=== PATIENT | female | born 1965 | race Caucasian/White ===

== ENCOUNTER 2019-06-30 15:04 | Emergency (ER) | payer OTHER ==
[~2019-06-30] VITALS: Ht 160 cm; Wt 72.6 kg
[~2019-06-30 15:04] MED LIST: FORTAMET1000 MG; HUMALOG100 U/ML SQ; LANTUS SOLOSTAR3 ML SQ; LIPITOR20 MG; METFORMIN HCL500 M1 PO; NITROGLYCERIN0.4 MG; PROTONIX40 M1
== END 2019-06-30 18:11 | disposition home or self-care (01) ==
LOC: ER 15:04
DX: E11.649 Type 2 diabetes mellitus with hypoglycemia without coma (principal)

== ENCOUNTER → 2020-07-20 | Emergency (ER) | payer OTHER ==
[~2020-07-20] VITALS: Ht 160 cm; Wt 72.1 kg
[~2020-07-20] MED LIST changes: +ATORVASTATIN CA10 MG; +CITALOPRAM HBR20 MG; +KETO10TA2 PO; +LOSARTAN POTASS50 MG; +OMEPRAZOLE20 MG
== END | disposition home or self-care (01) ==
LOC: ER 09:14
DX: M79.644 Pain in right finger(s) (principal)

== ENCOUNTER 2021-03-08 12:17 | Emergency (ER) | payer OTHER ==
[~2021-03-08] VITALS: Ht 160 cm; Wt 68.5 kg
[2021-03-08] MEDS ORDERED: DICLOFENAC POTA50 MG PO (16:09)
[2021-03-08] MEDS ORDERED: ORPHENADRINE C100 MG PO (16:09)
== END 2021-03-08 16:28 ==
LOC: ER 12:17
DX: M79.605 Pain in left leg (principal); I10 Essential (primary) hypertension; E11.9 Type 2 diabetes mellitus without complications

== ENCOUNTER 2021-03-12 14:39 | Inpatient (IN) | payer OTHER ==
[~2021-03-12] VITALS: Ht 160 cm
[~2021-03-12 14:39] MED LIST changes: +DICLOFENAC POTA50 MG PO; +ORPHENADRINE C100 MG PO
== END 2021-03-17 19:32 | DRG 639 ==
LOC: ER 14:39 → ICU-2 17:15 → MEDJ 03-13 16:03
PROVIDERS: ADMIT Internal Medicine; ATTEND Internal Medicine
DX: E11.10 Type 2 diabetes mellitus with ketoacidosis without coma (principal); Z79.4 Long term (current) use of insulin; E86.0 Dehydration; E87.8 Other disorders of electrolyte and fluid balance, not elsewhere classified; I10 Essential (primary) hypertension; F32.9 Major depressive disorder, single episode, unspecified; Z20.822 Contact with and (suspected) exposure to COVID-19

== ENCOUNTER 2023-01-25 10:06 | Emergency (ER) | payer OTHER ==
[~2023-01-25] VITALS: Ht 160 cm; Wt 70.3 kg
[~2023-01-25 10:06] MED LIST changes: +XIGDUO XR 10 M1 EAC1
== END 2023-01-25 11:11 | disposition home or self-care (01) ==
LOC: ER 10:06
DX: L03.818 Cellulitis of other sites (principal); R21 Rash and other nonspecific skin eruption; Z88.5 Allergy status to narcotic agent; Z88.6 Allergy status to analgesic agent

== ENCOUNTER 2023-03-10 07:44 | Inpatient (IN) | payer OTHER ==
[~2023-03-10] VITALS: Ht 152.4 cm; Wt 68.0 kg
--- NOTE | 2023-03-10 08:10 | NUR ---
PTE ALERTA Y ORIENTADA X3 ACOMPANADA DE ESPOSO. ESPOSO REFIERE QUE PTE COMENZO A VOMITAR A LAS 12AM REFIERE QUE TUVO VOMITOS X4. PTE TIENE HX DE DIABETES Y NO SE ADMINISTRO LA INSULINA EN LA MANANA DE HOY. PTE REFIERE TENER DOLOR DE PECHO. SE MIDEN S/V, DXT Y SE REALIZA EKG.
[2023-03-10 09:13] LABS: URINE APPEARANCE Clear; URINE BILIRRUBIN Negative (NEGATIVE); URINE BLOOD Negative; URINE COLOR Yellow; URINE LEUKOCYTE Negative; URINE NITRATE Negative; URINE PROTEIN Negative (NEGATIVE); URINE UROBILINOGEN 0.2 E.U./dl
[2023-03-10 09:17] LABS: URINE BACTERIA 807.3 uL (0.0-1933); URINE EPITHELIAL CELLS 6.9 uL (0.0-38.8); URINE WBC 5.4 uL (0.0-23.2)
[2023-03-10 09:19] LABS: ALBUMIN 4.3 gm/dL (3.4-5.0); BILIRUBIN TOTAL 0.82 mg/dL (0.3-1.2); CALCIUM 10.7 mg/dL (8.5-10.1); CREATININE SERUM 1.8 mg/dL (0.55-1.02); GFR 28.8; GLOBULINA 3.4 G/DL (2.4-3.5); INR 1.05; MAGNESIUM 2.7 mg/dL (1.8-2.4); PARTIAL THROMBOPLASTIN TIME 24.8 SECONDS (22.0-34.0); PHOSPHOROUS 8.4 mg/dL (2.5-4.9); POTASSIUM 4.97 mEq/L (3.5-5.1); TOTAL PROTEIN 7.7 gm/dL (6.4-8.2)
[2023-03-10 09:35] LABS: ABG pCO2 27.5 mmHg (35-45); SaO2 96.4 %
[2023-03-10 09:36] LABS: ABG PH 7.178 (7.35-7.45); BASE EXCESS -16.8 mmol/l; Tco2 10.8 mmol/l; allen test SATISFACTORY; o2 21 %; puncture site RADIAL RIGHT
[2023-03-10 09:37] LABS: URINE GLUCOSE >=1000 MG/DL (NEGATIVE); URINE RBC 0.7 uL (0.0-20.8)
[2023-03-10 09:55] LABS: HEMATOCRIT 41.6 % (36.0-45.00); HEMOGLOBIN 13.3 g/dL (12.0-15.00); MEAN CELL VOLUME 90.5 fL (80.00-100.00); MEAN CORPUSCULAR HEMOGLOBIN 28.9 pg (27.00-32.0); PLATELET COUNT 279 K/uL (150-450); RED BLOOD COUNT 4.59 M/uL (4.00-6.00)
[2023-03-10 12:27] LABS: CALCIUM 10.3 mg/dL (8.5-10.1); CREATININE SERUM 1.74 mg/dL (0.55-1.02); GFR 29.95; POTASSIUM 4.61 mEq/L (3.5-5.1)
[2023-03-10 12:30] LABS: CHOL HDL RATIO 2.6 (0-5.0)
--- NOTE | 2023-03-10 13:39 | NUR ---
SE RECIBE PACIENTE FEMENINA ALERTA Y ORIENTADA X3, SE COLOCA EN CAMA #2 EN AREA DE CRITICO CON BARRANDAS ELEVADAS. SE CONECTA A MONITOR CARDIACO Y OXIMETRIA DE PUL[place]. SE LE ORIENTA PACIENTE Y A FAMILIAR SOBRE LAS ORDENES MEDICAS, REFIERE ENTENDER LAS MISMAS. SE CANALIZA EN BRAZO DERECHO CON ANGIO #20 Y SE LE COLOCA 0.9 NSS 1,000 BAJANDO A 250ML/HR PATENTE Y EN BRAZO DERECHO SE LE COLOCA ANGIO #22 CON KCL 40MEQ 1,000 BAJANDO A 40ML/HR PATENTES LIBRES DE EDEMAS Y ENROJECIMIENTO. SE LE INSERTA COLLINS #16 CON MEDIDAS ASEPTICAS Y ESTERILES. SE LE MEGAN LAS MUETRAS Y SE LE ADMINISTRAN LOS MEDICAMENTOS FERNANDO LA ORDEN MEDICA. SE OBSERVA POR CAMBIOS.
[2023-03-10 15:38] LABS: HEMATOCRIT 42.1 % (36.0-45.00); HEMOGLOBIN 13.4 g/dL (12.0-15.00); MEAN CELL VOLUME 88.6 fL (80.00-100.00); MEAN CORPUSCULAR HEMOGLOBIN 28.1 pg (27.00-32.0); MEAN CORPUSCULAR HGB CONC 31.8 g/dl (32.0-36.0); PLATELET COUNT 265 K/uL (150-450); RED BLOOD COUNT 4.75 M/uL (4.00-6.00); RED CELL DISTRIBUTION WIDTH 12.3 % (11.5-14.5)
[2023-03-10 17:44] LABS: CALCIUM 9.2 mg/dL (8.5-10.1); CREATININE SERUM 1.41 mg/dL (0.55-1.02); GFR 38.17; POTASSIUM 3.91 mEq/L (3.5-5.1)
[2023-03-11 07:40] LABS: HEMATOCRIT 36.5 % (36.0-45.00); HEMOGLOBIN 11.9 g/dL (12.0-15.00); MEAN CELL VOLUME 87.7 fL (80.00-100.00); MEAN CORPUSCULAR HEMOGLOBIN 28.6 pg (27.00-32.0); MEAN CORPUSCULAR HGB CONC 32.6 g/dl (32.0-36.0); PLATELET COUNT 227 K/uL (150-450); RED BLOOD COUNT 4.17 M/uL (4.00-6.00); RED CELL DISTRIBUTION WIDTH 12.8 % (11.5-14.5)
[2023-03-12 06:43] LABS: HEMATOCRIT 34.5 % (36.0-45.00); HEMOGLOBIN 11.6 g/dL (12.0-15.00); MEAN CELL VOLUME 86.5 fL (80.00-100.00); MEAN CORPUSCULAR HEMOGLOBIN 29.2 pg (27.00-32.0); MEAN CORPUSCULAR HGB CONC 33.7 g/dl (32.0-36.0); PLATELET COUNT 188 K/uL (150-450); RED BLOOD COUNT 3.99 M/uL (4.00-6.00); RED CELL DISTRIBUTION WIDTH 12.5 % (11.5-14.5)
[2023-03-12 07:34] LABS: ALBUMIN 2.8 gm/dL (3.4-5.0); BILIRUBIN TOTAL 0.34 mg/dL (0.3-1.2); CALCIUM 8.6 mg/dL (8.5-10.1); CREATININE SERUM 0.76 mg/dL (0.55-1.02); GFR 77.89; GLOBULINA 2.7 G/DL (2.4-3.5); POTASSIUM 4.75 mEq/L (3.5-5.1); TOTAL PROTEIN 5.5 gm/dL (6.4-8.2)
== END 2023-03-12 15:45 | disposition home or self-care (01) | DRG 638 ==
LOC: ER 07:44 → ICU-2 11:02 → MEDI 03-11 08:57
PROVIDERS: General Practice; ADMIT Internal Medicine; ATTEND Internal Medicine
DX: E11.10 Type 2 diabetes mellitus with ketoacidosis without coma (principal); N17.9 Acute kidney failure, unspecified; E86.0 Dehydration; Z79.4 Long term (current) use of insulin; I10 Essential (primary) hypertension; E78.5 Hyperlipidemia, unspecified; I12.9 Hypertensive chronic kidney disease with stage 1 through stage 4 chronic kidney disease, or unspecified chronic kidney disease; E11.22 Type 2 diabetes mellitus with diabetic chronic kidney disease; N18.9 Chronic kidney disease, unspecified

== ENCOUNTER 2023-08-24 07:05 | Emergency (ER) | payer OTHER ==
[~2023-08-24] VITALS: Ht 160 cm; Wt 69.9 kg
[~2023-08-24 07:05] MED LIST changes: +ADMELOG100 UNIT/1; +AMLODIPINE BESY10 MG PO; +ATORVASTATIN CA10 MG PO; +LOSARTAN POTAS100 MG PO; +METFORMIN HCL1000 M3 PO; +OZEMPIC0.25 MG/02 SQ; +PNEU16DI2 IJ
[2023-08-24] MEDS ORDERED: GLUMETZA500 MG (07:16)
[2023-08-24] MEDS ORDERED: HUMALOG100 UNIT/2 SQ (07:16)
[2023-08-24] MEDS ORDERED: LANTUS SOL100 UNIT/1 (07:16)
[2023-08-24] MEDS ORDERED: LOSARTAN POTASS25 MG PO (07:17)
[2023-08-24] MEDS ORDERED: ASPIRIN81 MG (07:17)
[2023-08-24] MEDS ORDERED: LIPITOR40 M1 (07:17)
== END 2023-08-24 09:07 | disposition home or self-care (01) ==
LOC: ER 07:06
DX: H10.89 Other conjunctivitis (principal); Z88.8 Allergy status to other drugs, medicaments and biological substances; E11.9 Type 2 diabetes mellitus without complications; Z79.84 Long term (current) use of oral hypoglycemic drugs; I10 Essential (primary) hypertension

== ENCOUNTER → 2024-09-26 | Emergency (ER) | payer OTHER ==
[~2024-09-26] VITALS: Ht 160 cm; Wt 67.1 kg
[~2024-09-26] MED LIST changes: +ASPIRIN81 MG; +GLUMETZA500 MG; +HUMALOG100 UNIT/2 SQ; +JARDIANCE10 MG PO; +LANTUS SOL100 UNIT/1; +LIPITOR40 M1; +LOSARTAN POTASS25 MG PO
== END | disposition home or self-care (01) ==
LOC: ER 07:25
DX: B02.23 Postherpetic polyneuropathy (principal); Z88.5 Allergy status to narcotic agent; Z88.6 Allergy status to analgesic agent

== ENCOUNTER → 2025-04-26 | Emergency (ER) | payer OTHER ==
[~2025-04-26] VITALS: Ht 160 cm; Wt 69.4 kg
[~2025-04-26] MED LIST changes: +CEFTRIAXONE SODIUM 1,000 MG VIAL IM ONE; +CEFTRIAXONE SODIUM 2,000 MG VIAL ONE; +DIABETIC TUSSI118 M3 PO; +DUI500 PO; +KETOROLAC TROMETHAMINE 30 MG VIAL IM ONE; +KETOROLAC TROMETHAMINE 30 MG VIAL ONE; +OSEL75CA PO
[2025-04-26 15:57] LABS: BASO % 0.9 % (0.1-1.2); EOS # 0.45 (0.04-0.54); EOS % 3.9 % (0.7-7.0); LYMPH # 2.48 (1.18-3.74); LYMPH % 21.3 % (19.3-53.1); MEAN PLATELET VOLUME 9.80 fl (9.4-12.4); MONO # 0.85 (0.24-0.82); MONO % 7.3 % (4.7-12.5); NEUT # 7.71 (1.56-6.13); NEUT % 66.3 % (34.0-71.1); RED CELL DISTRIBUTION WIDTH 11.9 % (11.6-14.4)
[2025-04-26 16:04] LABS: ERYTHROCYTE SEDIMENTATION RATE 5 mm/hr (0-30)
[2025-04-26 16:25] LABS: ALT/SGPT 26.0 U/L (12-78); AST/SGOT 15.0 U/L (15-37); BILIRUBIN TOTAL 0.36 mg/dL (0.3-1.2); BUN CREA RATIO 29.0 (7.0-25.0); CREATININE SERUM 0.86 mg/dL (0.55-1.02); GFR 67.08; GLOBULINA 3.4 G/DL (2.4-3.5); GLUCOSE FASTING 153.0 mg/dL (65-100); OSMOLALITY SERUM 291.0 MOSM/KG (275-295)
== END | disposition home or self-care (01) ==
LOC: ER 13:56
PROVIDERS: General Practice
DX: L90.5 Scar conditions and fibrosis of skin (principal); S81.812S Laceration without foreign body, left lower leg, sequela; W19.XXXS Unspecified fall, sequela; E11.9 Type 2 diabetes mellitus without complications; Z79.4 Long term (current) use of insulin; Z79.84 Long term (current) use of oral hypoglycemic drugs; I10 Essential (primary) hypertension; Z88.8 Allergy status to other drugs, medicaments and biological substances

== ENCOUNTER 2025-04-29 12:26 | Emergency (ER) | payer OTHER ==
[~2025-04-29] VITALS: Ht 160 cm; Wt 69.4 kg
[~2025-04-29 12:26] MED LIST changes: -CEFTRIAXONE SODIUM 1,000 MG VIAL IM ONE; -CEFTRIAXONE SODIUM 2,000 MG VIAL ONE; -DIABETIC TUSSI118 M3 PO; -DUI500 PO; -KETOROLAC TROMETHAMINE 30 MG VIAL IM ONE; -KETOROLAC TROMETHAMINE 30 MG VIAL ONE; -OSEL75CA PO
[2025-04-29] MEDS ORDERED: GUAIFENESIN/DEXTROMETHORPHAN 100MG/10ML BLIST.PACK PO ONE ×2 (14:30→15:11)
[2025-04-29] MEDS ORDERED: CEFTRIAXONE SODIUM 1,000 MG VIAL IM ONE (14:30)
[2025-04-29] MEDS ORDERED: METHYLPREDNISOLONE SOD SUCC 40 MG VIAL IV ONE (14:30)
[2025-04-29] MEDS ORDERED: LIDOCAINE HCL 1% 10ML VIAL ONE (15:11)
[2025-04-29] MEDS ORDERED: CEFTRIAXONE SODIUM 1,000 MG VIAL ONE (15:11)
[2025-04-29] MEDS ORDERED: METHYLPREDNISOLONE SOD SUCC 40 MG VIAL ONE (15:11)
[2025-04-29 15:58] LABS: BASO % 1.0 % (0.1-1.2); EOS # 0.19 (0.04-0.54); EOS % 2.2 % (0.7-7.0); LYMPH # 1.23 (1.18-3.74); LYMPH % 14.3 % (19.3-53.1); MEAN PLATELET VOLUME 9.80 fl (9.4-12.4); MONO # 0.83 (0.24-0.82); MONO % 9.6 % (4.7-12.5); NEUT # 6.25 (1.56-6.13); NEUT % 72.6 % (34.0-71.1); RED CELL DISTRIBUTION WIDTH 11.7 % (11.6-14.4)
[2025-04-29 16:07] LABS: ERYTHROCYTE SEDIMENTATION RATE 8 mm/hr (0-30)
[2025-04-29 17:20] LABS: COVID-19 AG NEGATIVE (NEGATIVE)
[2025-04-29] MEDS ORDERED: DIABETIC TUSSI118 M3 PO (18:08)
[2025-04-29] MEDS ORDERED: OSEL75CA PO (18:08)
[2025-04-29] MEDS ORDERED: DUI500 PO (18:08)
== END 2025-04-29 18:33 ==
LOC: ER 12:26
PROVIDERS: General Practice
DX: S80.812A Abrasion, left lower leg, initial encounter (principal); X15.8XXA Contact with other hot household appliances, initial encounter; Y93.89 Activity, other specified; Y92.89 Other specified places as the place of occurrence of the external cause; Y99.9 Unspecified external cause status; J00 Acute nasopharyngitis [common cold]; E11.9 Type 2 diabetes mellitus without complications; Z79.4 Long term (current) use of insulin; Z79.84 Long term (current) use of oral hypoglycemic drugs; I10 Essential (primary) hypertension; R53.81 Other malaise; Z88.8 Allergy status to other drugs, medicaments and biological substances

== ENCOUNTER 2025-05-14 14:44 | Emergency (ER) | payer OTHER ==
[~2025-05-14] VITALS: Ht 160 cm; Wt 69.4 kg
[~2025-05-14 14:44] MED LIST changes: +DIABETIC TUSSI118 M3 PO; +DUI500 PO; +OSEL75CA PO
[2025-05-14 14:46] VITALS: BP 136/78; O2SAT 98
[2025-05-14] MEDS ORDERED: LASIX20 MG (14:54)
[2025-05-14] MEDS ORDERED: TOPROL XL25 M1 (14:54)
[2025-05-14] MEDS ORDERED: MUPIROCIN15 GM TOP (15:27)
[2025-05-14] MEDS ORDERED: ZYRTEC10 MG PO (15:29)
[2025-05-14] MEDS ORDERED: DIPHENHYDRAMINE HCL 50 MG CAPSULE PO ONE (15:30)
[2025-05-14] MEDS ORDERED: METHYLPREDNISOLONE SOD SUCC 125 MG VIAL IM ONE (15:30)
[2025-05-14] MEDS ORDERED: METHYLPREDNISOLONE SOD SUCC 125 MG VIAL ONE (15:43)
== END 2025-05-14 17:57 | disposition home or self-care (01) ==
LOC: ER 14:45
DX: L73.8 Other specified follicular disorders (principal); Z88.8 Allergy status to other drugs, medicaments and biological substances; I10 Essential (primary) hypertension; E11.9 Type 2 diabetes mellitus without complications; Z79.4 Long term (current) use of insulin; E78.49 Other hyperlipidemia